=== PATIENT | male | born 1995 | race Caucasian/White ===

== ENCOUNTER 2017-10-30 12:08 | Emergency (ER) | payer SELFPAY ==
[~2017-10-30] VITALS: Ht 185.4 cm; Wt 111.6 kg
[2017-10-30 12:11] VITALS: BP 179/94; PULSE 88; RESP 18; TEMP 98.4; O2SAT 99
[2017-10-30] MEDS ORDERED: LISI-519 PO (12:18)
[2017-10-30] MEDS ORDERED: BENZ1CAP51 PO (12:38)
[2017-10-30] MEDS ORDERED: ZITHTAB PO (12:38)
--- NOTE | 2017-10-30 12:39 | PD ---
HPI Chief Complaint: Cold / Flu Symptoms Time Seen by Provider: 12:32 Travel History International Travel<30 days: No Contact w/Intl Traveler<30days: No Traveled to known affect area: No History of Present Illness HPI 21-year-old male presents to the emergency department for evaluation of cough for 2 weeks. Patient states that he coughs so hard, he will vomit. He reports associated congestion. Patient reports history of high blood pressure. He denies any pain at this time. Patient denies any other symptoms or complaints at this time. Mild severity. No exacerbating or alleviating factors PFSH Past Medical History Cardiovascular Problems: Yes (htn) Diminished Hearing: No Hypertension: Yes Tetanus Vaccination: Unknown Social History Alcohol Use: No Tobacco Use: No Substance Use: No Allergies-Medications (Allergen,Severity, Reaction): Coded Allergies: No Known Allergies (Verified Allergy, Unknown, 10/30/17) Reported Meds & Prescriptions Reported Meds & Active Scripts Active Reported Lisinopril 5 Mg Tab 5 Mg PO DAILY Review of Systems Except as stated in HPI: all other systems reviewed are Neg Physical Exam Narrative GENERAL: Well-nourished, well-developed male patient, ambulatory. Afebrile. SKIN: Focused skin assessment warm/dry. HEAD: Normocephalic. Atraumatic. ENT: Mucosa pink and moist. No erythema or exudates. No uvular edema. No uvular , palatal, or tonsillar deviation. Airway patent. Nasal turbinates appear normal without nasal blood, purulent drainage or septal hematoma. Bilateral tympanic membranes clear without erythema or perforation. EYES: No scleral icterus. No injection or drainage. NECK: Supple, trachea midline. No JVD or lymphadenopathy. CARDIOVASCULAR: Regular rate and rhythm without murmurs, gallops, or rubs. RESPIRATORY: Breath sounds equal bilaterally. No accessory muscle use. Lung sounds are clear to auscultation. Dry cough noted. GASTROINTESTINAL: Abdomen soft, non-tender, nondistended. MUSCULOSKELETAL: No cyanosis, or edema. BACK: No obvious deformity. Data Data Last Documented VS Vital Signs Date Time Temp Pulse Resp B/P (MAP) Pulse Ox O2 Delivery O2 Flow Rate FiO2 10/30/17 12:11 98.4 88 18 179/94 (122) 99 MDM Medical Decision Making Medical Screen Exam Complete: Yes Emergency Medical Condition: Yes Medical Record Reviewed: Yes Differential Diagnosis URI versus bronchitis versus pneumonia Narrative Course 21-year-old male presents to the emergency department for evaluation of cough for 2 weeks. He appears well on exam. Patient was discharged prescription for azithromycin and benzonatate capsules. He is encouraged to follow-up with a primary care physician. He will be given information on the [facility] clinic. The patient was discharged in stable condition with instructions, including return instructions and follow up instructions. Diagnosis Primary Impression: Upper respiratory infection Qualified Codes: J06.9 - Acute upper respiratory infection, unspecified Referrals: [facility] call for appointment Primary Care Physician call for appointment Patient Instructions: General Instructions, Upper Respiratory Infection (ED) Additional Instructions: Take antibiotic as directed until gone. Take benzonatate capsules as directed as needed for cough. Follow-up with a primary care physician. Return to the emergency department for any acute worsening of symptoms. Med/Other Pt SpecificInfo: Prescription(s) given Scripts Benzonatate (Benzonatate) 200 Mg Cap 200 MG PO TID Y for COUGH, #21 CAP 0 Refills Prov: Bianca Morgan 10/30/17 Azithromycin (Zithromax Z-Vick) 250 Mg Dspk 250 MG PO DIRECTED for Infection, #1 DSPK 0 Refills 500 MG (2 tabs) day 1, then 1 tab days 2-5. Prov: Bianca Morgan 10/30/17 Disposition: 01 DISCHARGE HOME Condition: Stable Bianca Morgan Oct 30, 2017 12:39
== END 2017-10-30 12:49 | disposition home or self-care (01) ==
LOC: PHEFT 12:08
DX: J06.9 Acute upper respiratory infection, unspecified (principal); R11.10 Vomiting, unspecified; I10 Essential (primary) hypertension
CPT/HCPCS: 99283